=== PATIENT | male | born 1985 | race Caucasian/White ===

== ENCOUNTER 2025-02-26 00:32 | Inpatient (IN) | payer OTHER, SELFPAY ==
[2025-02-25 20:04] VITALS: BP 152/96
[2025-02-25 20:33] LABS: Hematocrit 42.6 % (39.0-52.0); Hemoglobin 14.5 g/dL (13.0-18.0); Mean Corp Hgb Conc. 34.0 g/dL (33.0-37.0); Mean Corpuscular Volume 95.3 fL (80.0-94.0); Nucleated Red Blood Cells % 0 % (-); Platelet Count 216 10^3/uL (130-400); Red Cell Dist. Width 11.6 % (11.5-14.5)
[2025-02-25 20:51] LABS: ALT (SGPT) 14 U/L (0-50); AST (SGOT) 16 U/L (17-59); Albumin 4.8 g/dl (3.5-5.0); Alkaline Phosphatase 48 U/L (38-126); Blood Urea Nitrogen 18 mg/dl (9-20); Calcium 9.1 mg/dl (8.4-10.2); Carbon Dioxide 28 mmol/L (22-30); Chloride 105 mmol/L (98-107); Glucose 89 mg/dl (70-99); Potassium 4.3 mmol/L (3.5-5.1); Sodium 142 mmol/L (135-145); Total Protein 7.1 g/dl (6.3-8.2); eGFR > 60.00
[2025-02-25 21:02] LABS: Troponin I < 0.012 ng/ml
[2025-02-25 21:28] VITALS: BP 139/90
--- NOTE | 2025-02-25 22:47 | ED.GENMED ---
History of Present Illness
General
Chief Complaint: Seizure
Source: patient and records
Exam Limitations: none
Time Seen by Provider: 02/25/25 22:33
Nursing documentation reviewed up to this point in time: agreed with
History of Present Illness
History of Present Illness:
39-year-old male with reported history of seizures presents to the ER for evaluation of amnesia and reported seizure activity. Patient reports that he has a long history of generalized tonic-clonic seizures. He says that his typical seizure
pattern has been to have a brief seizure every few months. He says that in periods of stress the frequency seems to increase. He says that he has been seen by neurologist and has tried 'all of the seizure medications' but that 'everything seems to
make me sees more rather than less.' For this reason he says that he was not started on any chronic seizure medications and has instead been smoking marijuana which he says has decreased his frequency of seizures. He denies any other drug use and
denies any alcohol use. He presents to the ER today because he says that he has no memory of the weekend�he says that he can recall his activities on but that he cannot member anything from Tuesday or Tuesday. He says that he is currently
living with his brother (in a stressful social situation it sounds like). Patient says that he woke up confused on Tuesday morning and his brother told him that he was 'shaking around on the floor all day Tuesday and Tuesday.' Patient says that he
had bitten his tongue and that he believes he was having seizure activity off and on for 48 hours. Here in the ER he says that he is having chills and feels somewhat anxious. He describes nasal congestion and postnasal drip 'like I am underwater.'
He apparently mentions some tightness in his chest in triage but denied to me. He denies any headache or any other acute complaints.
Past History
Past History
ED Past Medical History: Negative HTN or Hypercholesterolemia
ED Past Surgical History: Negative Cardiac
Social History
Tobacco: Non-smoker
Alcohol: None
Drug: Marijuana
Personal: Single
Living: with family
Review of Systems
Review of Systems
All Other Systems: ROS reviewed and negative except as documented in HPI and ROS
Constitutional: Reports chills; Denies fever
EENT: Reports runny nose and other (Nasal congestion)
Respiratory: Denies trouble breathing
Cardiac: Denies chest pain
ABD/GI: Denies abdominal pain, nausea or vomiting
: Denies flank pain
Neurological: Denies dizzy, headache, weakness or numbness
Psychiatric: Reports anxiety
Phy Exam
Physical Exam
Physical Exam:
General: Awake, alert, oriented x3; no acute distress
Head: Normocephalic, atraumatic
Eyes: Conjunctiva normal, EOMI, pupils equal round reactive to light bilaterally
Throat: Airway intact, handling secretions, laceration of the left side of tongue
Neck: Trachea midline, supple without meningismus
Lungs: Clear to auscultation bilaterally, no wheezing, rales, rhonchi
Heart: Regular rate and rhythm, no murmurs, gallops, or rubs
Abd: Soft, non distended, nontender
Neuro: Cranial nerves intact, speech fluid, motor and sensory intact in all extremities
Skin: No rash
Extremities: Warm and well-perfused
Scores
Heart Failure Risk
Heart Failure Risk Score: Not Applicable
Heart Score for Chest Pain Patients
STEMI patient?: Not applicable
Withdrawal Assessment of Alcohol
Withdrawal Assessment Completed?: Not applicable
Course
Orders/Labs/Results
Orders:
Orders
02/25/25 20:17
ECG [Electrocardiogram (*1)] Urgent
Reason for Study: Chest Pain
EKG- Treatment ONCE
02/25/25 20:22
Complete Blood Count/With Diff Urgent
Comprehensive Metabolic Panel Urgent
Troponin I Urgent
02/25/25 22:34
Drug Screen, Urine [Urine Drug Abuse Screen] Urgent
02/25/25 22:43
CT Head W/o Iv Contrast Urgent
Comment:
Reason For Exam: change in seizure pattern, amnesia
Abnormal Lab Results
02/25/25
20:22
WBC 12.1 H 10^3/uL
(4.8-10.8)
RBC 4.47 L 10^6/uL
(4.70-6.10)
MCV 95.3 H fL
(80.0-94.0)
MCH 32.4 H pg
(27.0-31.0)
MPV 10.9 H fL
(7.4-10.4)
Absolute Neuts (auto) 7.2 H 10^3/uL
(1.4-6.5)
Absolute Lymphs (auto) 3.7 H 10^3/uL
(1.2-3.4)
Absolute Monos (auto) 1.0 H 10^3/uL
(0.1-0.6)
AST 16 L U/L
(17-59)
02/25/25 20:22
02/25/25 20:22
Vital Signs
Initial and Last Documented VS:
Initial Vital Signs
Temp Pulse Resp BP Pulse Ox
37.2 C 68 16 152/96 100
02/25/25 20:04 02/25/25 20:04 02/25/25 20:04 02/25/25 20:04 02/25/25 20:04
Last Documented Vital Signs
Temp Pulse Resp BP Pulse Ox
37.2 C 64 16 139/90 99
02/25/25 20:04 02/25/25 22:00 02/25/25 22:00 02/25/25 21:28 02/25/25 22:00
MDM/Problems Addressed
Differential Diagnosis Includes:
Drug/alcohol use, seizure activity, TGA
MDM/Problems Addressed:
39-year-old male presents for evaluation of presumed seizure activity over the weekend�has loss of memory for 2 days and has a trauma to the tongue and was told by family members that he was having seizures off and on for 48 hours. Hypertensive but
otherwise normal vitals. Physical exam as above. He had labs in triage including CBC which shows a marginal leukocytosis, CMP no clinically significant abnormalities. EKG shows sinus rhythm, troponin undetectable. Given change in reported
seizure pattern and loss of memory will check CT head. Will plan to admit for neurology consultation and monitoring.
Chronic conditions affecting care:
Seizures
Acute Exacerbation and/or Progression of Chronic Illness:
Acutely hypertensive resolved without intervention continue to monitor but no additional antihypertensives indicated at this point
Acute Exacerbation and/or Progression of Chronic Illness: HTN
*Radiology
Radiology exam reviewed: radiology read reviewed
*Pulse Oximetry
SaO2: 99
Oxygen Mode of Delivery: Room air
Patient hypoxic: no (99%)
*EKG
Interpreted by ED Provider?: Yes
Heart Rate: 57
Rate: bradycardiac
Rhythm: sinus
Harvel: normal axis
Interval: normal interval
QRS Pattern: normal QRS
Ischemia: no ischemia
*Critical Care Note
Total Time (30-74mins, 75-104mins- exclusive of procedures): Not Applicable
Data Reviewed
Review of Other/Old Records Reveals: Labs, Records and Radiology Studies
Source: patient and records
Patient Management
Discussion with other providers: Hospitalist (Discussed with hospitalist) and [employer] [facility] (Discussed with neurologist )
Escalation/DeEscalation of care consider admission/obs:
Admission indicated
ED Attending Note
-
Portions of this chart may have been created with voice recognition software.� Occasional wrong word or��sound alike� substitutions may have occurred due to the inherent limitations of voice recognition software.
Discharge Plan
Departure
Discharge Problem:
Amnesia, Seizure
Prescriptions:
No Action
multivitamin [Daily Multiple] 1 EACH tablet
1 ea PO DAILY
aspirin [Emerson Aspirin] 325 MG tablet
325 mg PO
Referrals:
Deanne Mccabe NP [Family Provider, Family Practice]
Interventions
Interventions:
*General Assessment Last Done: 02/25/25 20:11
*Neglect/Abuse Screening Last Done: 02/25/25 20:11
*ED COVID-19 Vaccine History Last Done: 02/25/25 22:07
*ED Influenza Vaccine History Last Done: 02/25/25 22:07
Discharge Date and Time
Print Language: AMERICAN
[2025-02-25 23:04] VITALS: BMI 20.6
[2025-02-25 23:12] VITALS: BP 143/111
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
[2025-02-26] VITALS: BP 123/86
[2025-02-26 01:31] VITALS: BP 151/95; BMI 20.3
--- NOTE | 2025-02-26 05:56 | W.PN.UPDATE ---
Update Note
Progress Note Update
patient reports he is suicidal, has ideas but no active plans. discussed with Attending. will place patient on 1:1. Pych consult in place
--- NOTE | 2025-02-26 06:31 | PTCARENOTE ---
pt is aaox3, he is flat affect and depressed. states how he is suicidal. originally denied a plan, but then stated ' i have a noose on my table at home. i don't think the tree branch will be able to hold me' 'i hope there is a next life' informed [facility]
Bhupinder - 1:1 observation started. pt has order for psych and neuro.
[2025-02-26 07:54] LABS: HDL Cholesterol 43 mg/dl; LDL Cholesterol, Calculated 31 mg/dl; Very Low Density Lipoprotein 10 mg/dl (0-30)
--- NOTE | 2025-02-26 08:20 | PTCARENOTE ---
Pt still stating this am that he was telling the previous nurse that he 'has a noose at home already tied and was ready to slip it over his neck and just jump and then Snap!'. He dose not want to suffer, he wants it quick. 'I have suffered enough.'
Pt's 1:1 at bedside. Pt cooperative and appropriate at present.
[2025-02-26 08:28] VITALS: BP 147/87
[2025-02-26 08:29] LABS: TSH 0.75 uIU/ml (0.47-4.68)
[2025-02-26 08:33] LABS: Ferritin 110.0 ng/ml (17.9-464.0)
[2025-02-26 09:05] LABS: Folate 7.7 ng/ml (2.76-20); Vitamin B12 271 pg/ml (239-931)
[2025-02-26 10:13] VITALS: BP 126/80; BP 144/106; O2SAT 98
--- NOTE | 2025-02-26 14:31 | CM ---
Addendum entered by Alexus Hilliard 02/26/25 15:27:
retail general manager reviewed with patient any recent hospitalizations and patient states he goes to [facility].
Original Note:
retail general manager reviewed patient's chart and met with patient and patient lives with his brother in a town home, patient's grandfather lives next door, patient is independent with adl's and ambulation, no dme, patient does not drive, patient reports
that he has not felt like this before, pillowcase cleaner asked patient if he has ever been treated before for any mental health challenges and patient progress that he has not, that he has kept his thoughts to himself and does not share his thoughts even
with his family and has not received any treatment, patient states that he uses Marijuana at home to deal with life's challenges.
Plan; retail general manager will await psychiatry evaluation for recommendations for patient.
[2025-02-26 14:43] VITALS: BP 156/89
--- NOTE | 2025-02-26 14:54 | W.PN.HOSP.TC ---
Today's Communication/Plan
-
Obtain further records from [place] [facility]
Await neurology input
Maintain on as needed benzodiazepine for suspected seizures
Assessment / Plan
Assessment / Plan
1. Seizure activity
- Patient has history of seizure disorder in the past currently not on any medication
- IV Ativan as needed ordered
- CT head in ER did not show any acute issues
- Neurology evaluated and await further input
- Patient initially not willing to be started on AED, okay with initiation of Keppra if needed
2. Suicidal ideation
- Patient reported having suicidal thoughts and stated of having a plan
- Currently on one-on-one
- Psychiatry evaluated and have requested further records from [facility]
DVT prophylaxis -SCD
Full code
Care plan discussed with neurology/psychiatry
Total time spent : 52 mins
Anticipated Discharge: 24 - 48 hours
Subjective/Interval History
-
Date of Service: February 26, 2025
No complaints overnight
no reported seizure activity
Objective Data
-
Vital Signs:
Vital Signs
Temp Pulse Resp BP Pulse Ox
98.1 F 53 16 156/89 100
02/26/25 14:43 02/26/25 14:43 02/26/25 14:43 02/26/25 14:43 02/26/25 14:43
Review of Systems
-
Respiratory: Reports No Symptoms
Cardiac: Reports No Symptoms
Abdomen/GI: Reports No Symptoms
Physical Exam
-
General: Negative Appears in Distress
HEENT: Negative Oxygen
Neuro: Awake, Alert, Oriented and No Motor Deficits
--- NOTE | 2025-02-26 21:10 | CON.NEURO4 ---
Consultation - Neurology 4
-
CONSULTING PHYSICIAN: Moiz Calvin MD
REFERRING PHYSICIAN: Westley White MD
DICTATED BY: Moiz Calvin MD
DATE/TIME OF REQUEST: 02/26/2025
DATE/TIME OF CONSULTATION: 02/26/2025
Reason for Consultation: Seizure
Assessment and Plan:
The patient is a 39 years old male with a past medical history of epilepsy who is not currently on any antiepileptic medication as the patient thinks that the antiepileptic medications that he has used in the past have not helped him to prevent the
seizures. He says that he takes marijuana to reduce her frequency of seizures. The patient is under a lot of stress due to his family circumstances and a psychiatry consult has been requested. The risks of not being on antiepileptic medication
including seizures and accidents were told and the patient verbalized understanding of our discussion.
Recommend Keppra 500 mg twice a day.
The CT of head did not show an acute intracranial abnormality.
Recommend MRI of the brain with and without contrast.
EEG to rule out seizure.
Seizure precautions including no driving for 6 months according to the [employer] law.
I had a detailed discussion with the patient regarding the assessment and the management plan and the patient verbalized understanding of our discussion.
History of Present Illness:
The patient is a 39 years old male with a past medical history of epilepsy who is not currently on any antiepileptic medication as the patient thinks that the antiepileptic medications that he has used in the past have not helped him to prevent the
seizures. He says that he takes marijuana to reduce her frequency of seizures. The patient is under a lot of stress due to his family circumstances and a psychiatry consult has been requested. The patient states that he had multiple seizures
prior to coming to the hospital with tongue bite and loss of consciousness which were witnessed by his brother. The patient does not want to take antiepileptic medications. The risks of not being on antiepileptic medication including seizures and
accidents were told and the patient verbalized understanding of our discussion.
The CT of head did not show an acute intracranial abnormality.
Past Medical History: Seizures.
Review of Systems:
The 10 point review of systems was negative aside from what is given in the history of present illness.
Neurologic Examination:
The patient is alert and oriented x 3
The speech is clear
The cranial nerves II to XII are grossly intact
The motor strength is 5/5 bilaterally in the upper and lower extremities
The sensations are grossly intact bilaterally
The cerebellar examination does not show limb ataxia
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
[2025-02-27] VITALS: BP 144/77
[2025-02-27 00:30] VITALS: BP 144/77
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
--- NOTE | 2025-02-27 08:29 | PTCARENOTE ---
Patient's automatic blood pressure failed to read 4 times. Manual needed to be taken.
--- NOTE | 2025-02-27 10:52 | CM ---
Addendum entered by Alexus Hilliard 02/27/25 16:15:
Cost of Vimpat per insurance is that it is formulary and covered by insurance with a $1 copay.
Original Note:
Chart reviewed and will wait on updated review and recommendations from psychiatry, and will assist with discharge planning.
Plan; Await psychiatry recommendations.
--- NOTE | 2025-02-27 12:31 | W.PN.HOSP.TC ---
Today's Communication/Plan
-
MRI brain with and without contrast
US SUSAN/TBI check
EEG/AED deferred to neuro
Assessment / Plan
Assessment / Plan
1. Seizure activity
- Patient has history of seizure disorder in the past currently not on any medication
- IV Ativan as needed ordered
- CT head in ER did not show any acute issues
- Neurology evaluated -MRI brain with and without contrast ordered as per recommendation
- Patient initially not willing to be started on AED, okay with initiation of Keppra if needed
2. Suicidal ideation
- Patient reported having suicidal thoughts and stated of having a plan
- Currently on one-on-one
- Psychiatry evaluated and have requested further records from [facility]
3. Bilateral feet claudication
- Active tobacco use
- SUSAN TBI ordered as LE pulses are palpable although felt to be low intensity
DVT prophylaxis -SCD
Full code
Anticipated Discharge: 24 - 48 hours
Subjective/Interval History
-
Date of Service: February 27, 2025
Resting comfortably in bed
Denies of any ongoing issue
Objective Data
-
Vital Signs:
Vital Signs
Temp Pulse Resp BP Pulse Ox
98.2 F 88 24 144/77 100
02/27/25 07:55 02/27/25 07:55 02/27/25 07:55 02/27/25 00:00 02/27/25 08:20
Review of Systems
-
Respiratory: Reports No Symptoms
Cardiac: Reports No Symptoms
Abdomen/GI: Reports No Symptoms
Physical Exam
-
General: Negative Appears in Distress
HEENT: Negative Oxygen
Neuro: Awake, Alert, Oriented and No Motor Deficits
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
[2025-02-27 15:18] VITALS: BP 148/97
--- NOTE | 2025-02-27 17:13 | W.PN.NEURO.1 ---
Today's Communication / Plan
-
The patient is a 39 years old male with a past medical history of epilepsy who is not currently on any antiepileptic medication as the patient thinks that the antiepileptic medications that he has used in the past have not helped him to prevent the
seizures. He says that he takes marijuana to reduce his frequency of seizures. The patient is under a lot of stress due to his family circumstances and a psychiatry consult has been requested. The risks of not being on antiepileptic medication
including seizures and accidents were told and the patient verbalized understanding of our discussion.
Would recommend Vimpat 100 mg BID as the patient does not want to take Keppra, dilantin or Depakote, which he says that he has used in the past and did not help him.
The CT of head did not show an acute intracranial abnormality.
Recommend MRI of the brain with and without contrast.
EEG to rule out seizure.
Seizure precautions including no driving for 6 months according to the [place] law. The patient verbalized understanding of our discussion regarding seizure precautions.
I had a detailed discussion with the patient regarding the assessment and the management plan and the patient verbalized understanding of our discussion.
Will sign off. Please call if you have any question.
Subjective/Objective
Subjective Data
Date of Service: February 27, 2025
The patient is a 39 years old male with a past medical history of epilepsy who is not currently on any antiepileptic medication as the patient thinks that the antiepileptic medications that he has used in the past have not helped him to prevent the
seizures. He says that he takes marijuana to reduce his frequency of seizures. The patient is under a lot of stress due to his family circumstances and a psychiatry consult has been requested. The risks of not being on antiepileptic medication
including seizures and accidents were told and the patient verbalized understanding of our discussion.
Would recommend Vimpat 100 mg BID as the patient does not want to take Keppra, dilantin or Depakote, which he says that he has used in the past and did not help him.
The CT of head did not show an acute intracranial abnormality.
Recommend MRI of the brain with and without contrast.
EEG to rule out seizure.
Seizure precautions including no driving for 6 months according to the [place] law. The patient verbalized understanding of our discussion regarding seizure precautions.
I had a detailed discussion with the patient regarding the assessment and the management plan and the patient verbalized understanding of our discussion.
Objective Data
Vital Signs
Temp Pulse Resp BP Pulse Ox
36.6 C 61 20 148/97 100
02/27/25 15:18 02/27/25 15:18 02/27/25 15:18 02/27/25 15:18 02/27/25 15:18
Lab Results
02/25/25 20:22
02/25/25 20:22
Sodium 142 mmol/L (135-145) 02/25/25 20:22
Potassium 4.3 mmol/L (3.5-5.1) 02/25/25 20:22
BUN 18 mg/dl (9-20) 02/25/25 20:22
Glucose 89 mg/dl (70-99) 02/25/25 20:22
Calcium 9.1 mg/dl (8.4-10.2) 02/25/25 20:22
LDL Cholesterol, Calc 31 mg/dl 02/26/25 06:54
Vitamin B12 271 pg/ml (239-931) 02/26/25 06:54
Ur Buprenorphine Negative (Negative) 02/25/25 23:16
Patient Allergies
fish Allergy (Mild, Uncoded 02/26/25 01:57)
vomits
Medications
-
Active Medications
Generic Name Dose Route Start Last Admin
Trade Name Freq PRN Reason Stop Dose Admin
Acetaminophen 650 mg 02/26/25 01:27
Acetaminophen 325 Mg Tablet PO 03/26/25 01:26
Q4HPRN PRN
mild pain/DODD/temp> 100.4F
Bisacodyl 10 mg 02/26/25 01:27
Bisacodyl 10 Mg Rectal Suppository RECTAL 03/26/25 01:26
V68IDSG PRN
constipation
Diazepam 10 mg 02/26/25 01:27
Diazepam 10 Mg/2 Ml Inj IV 03/26/25 01:26
DAILY PRN
seizure
Lacosamide 100 mg 02/27/25 20:00
Lacosamide (Vimpat) 100 Mg Tablet PO 03/27/25 19:59
BID ROYAL
Ondansetron HCl 4 mg 02/26/25 01:27
Ondansetron 4 Mg/2 Ml Vial IV 03/26/25 01:26
Q6HPRN PRN
nausea and vomiting
Polyethylene Glycol 17 grams 02/26/25 01:27
Polyethylene Glycol Powder 17 Grams Packet PO 03/26/25 01:26
DAILYPRN PRN
constipation
Senna/Docusate Sodium 1 tablet 02/26/25 01:27
Docusate W/Senna (Fernanda-Colace) Tablet PO 03/26/25 01:26
BIDPRN PRN
constipation
Sodium Chloride 0 flush 02/26/25 02:00
Sodium Chloride 0.9% (Flush) Syringe IV 03/26/25 01:59
PER PROTOCOL ROYAL
[2025-02-27] MEDS: VIMPAT 100 MG PO (19:25)
[2025-02-27] MEDS: ZYRTEC 10 MG PO (22:14)
[2025-02-27 23:00] VITALS: BP 173/85
[2025-02-28 03:29] VITALS: BP 159/87
[2025-02-28 07:05] VITALS: BP 139/96
[2025-02-28] MEDS: VIMPAT 100 MG PO (07:48)
[2025-02-28] MEDS: OCEAN, SALINE MIST 4 SPRAYS NASAL (07:49)
--- NOTE | 2025-02-28 09:06 | CM ---
Addendum entered by Alexus Hilliard 02/28/25 14:11:
manager of global has provided patient with Mobile Crisis number for [facility] contact number and outpatient counseling resources in [facility], shoe parts caser has set up an appointment for patient with [facility] on
03/05/25 at 10:30am, home today.
Original Note:
manager of global continues to follow with patient progress and contacted patient's insurance yesterday and cost of Lacosamide/Vimpat has a copay or $1 per month. Physician made aware.
Plan; To follow with patient progress and assist with discharge planning.
--- NOTE | 2025-02-28 12:28 | W.DCSUMMARY ---
Discharge Summary
Discharge Data
Date of Admission: 02/26/25
Date of Discharge: 02/28/25
-
Pending Results: No
Hospital Course
Discharging Physician : Dr Westley White
Disposition : To home
Primary care physician : Dr Deanne Mccabe
Principal Discharge diagnosis :
Reported seizure episodes
Suicidal ideation/intent
Chronic Discharge diagnosis :
History of seizure disorder
Marijuana use
Tobacco use
Physical examination:
HEENT: NC/AT
Chest: Clear to auscultation
Heart: N s1/s2, RRR
Abd: N BS, soft, nontender,
Neuro: No motor or sensory deficits,
Ext: edema
Hospital Course :
Patient is a 39-year-old male with past medical history of seizure disorder came with possible another seizure episode. Patient was noted to have multiple episodes of 'shaking' by family member and patient woke up with a tongue bite and no memory
of 24-48hrs. patient came to ER for further evaluation. Patient apparently have a history of seizure disorder and has been tried on different antiseizure medication in the past by regular neurologist without much success. Patient had been using
marijuana to help with the seizures although has increased frequency of seizures. CT head done in the ER showed no acute abnormality. Urine drug screen was positive for marijuana and benzos. Neurology was involved in care who recommended MRI
brain with without contrast and was negative for any structural issues. Patient did not have any further seizure activities. After discussion with patient patient agreed to be started on Vimpat, patient did not want any other AED as he has failed
in the past and medically there was concern of mood changes.
Patient also have expressed suicidal intent and ideation this admission. Psychiatry was involved in care and has evaluated patient. Patient initially was considered to be put on for involuntary hold in a psych facility although patient was later
cleared by psychiatry for discharge after improvement in suicidal ideation. Psychiatry has provided patient outpatient resources to follow through.
Onsite patient was also complaining of some bilateral feet claudication, patient has history of tobacco use and her lower extremity SUSAN/TBI was checked which ruled out any PAD. This is likely related to patient shoes and was instructed to have
changed for a better fit shoes.
Important imaging findings :
None
Procedure findings :
None
Discharge Plan
-
Patient Disposition: Home (Routine Discharge)
Discharge Diagnosis/Procedures: Seizure episode, suicidal ideation
Condition: Fair
Diet: Regular
Activity: As tolerated
Driving Restrictions: As prior to admission
Bathing Restrictions: OK to Shower
Referrals:
Deanne Mccabe NP [Family Provider, Family Practice] - in one week
Prescriptions:
New
lacosamide 100 mg Tablet
100 mg PO BID Qty: 60 2RF
Discharge Orders:
Discharge Patient (As Directed); Ordered 02/28/25
Ordered By: Westley White
Discharge Date and Time
Print Language: SLOVAK
--- NOTE | 2025-02-28 12:49 | W.PN.UPDATE ---
Update Note
Progress Note Update
patient seen chart reviewed. discussed with nursing and with case mgt. the patient is in a much better frame of mind today. he says his discussion with this business writer and with his one to one was very helpful in making him realize he can have a future
if he gets away from the stressors of his life. to this end he will be leaving the home he shares with his brother as he has a friend who is willing to set up house with him in a trailer they can rent for four months or so. his long range plan is to
get his sz disorder under control and do some serious hiking maybe the [facility] or even hike across the country. he said he believes his thoughts about 'flying' really are a wish to have adventure in his life rather than the painful
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 he is willing to take the vimpat.it will cost him one dollar for a month supply as per cm. cm arranging for followup in the family medicine clinic. he should also seek mental health
treatment for supportive therapy if he is feeling suicidal again. cm will give him a list of services. he can also call crisis if need be.
mse alert 0x3 pleasant and cooperative. much softer spoken than yesterday speech nl rate and tone goal oriented no psychosis mood is hopeful affect appropriate denies suicidality expressing thoughts re his future insight judgment have improved.
== END 2025-02-28 14:48 | disposition home or self-care (01) | DRG 101 ==
LOC: 4 WEST ACU 00:32
PROVIDERS: Emergency Medicine; ADMITTING PHYSICIAN Internal Medicine; ATTENDING PHYSICIAN Hospitalist; CONSULT PHYSICIAN Psychiatry & Neurology Neurology; EMERGENCY PHYSICIAN Emergency Medicine; FAMILY PHYSICIAN Nurse Practitioner Adult Health; OTHER PHYSICIAN Psychiatry & Neurology Psychiatry
DX: G40.909 Epilepsy, unspecified, not intractable, without status epilepticus (principal); R45.851 Suicidal ideations; F22 Delusional disorders; F17.200 Nicotine dependence, unspecified, uncomplicated; F12.90 Cannabis use, unspecified, uncomplicated; F60.3 Borderline personality disorder; I73.9 Peripheral vascular disease, unspecified; Z56.0 Unemployment, unspecified; Z91.148 Patient's other noncompliance with medication regimen for other reason; Z79.899 Other long term (current) drug therapy
CPT/HCPCS: 70450; 70553; 80053; 80061; 80306; 82607; 82728; 82746; 84443; 84484; 85025; 87070; 93005; 93922; 97162; 99285; 99406; A9575

== ENCOUNTER 2025-03-05 13:50 | Emergency (ER) | payer OTHER, MEDICAID, SELFPAY ==
[2025-03-05 13:55] VITALS: BP 140/88
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
[2025-03-05 16:05] VITALS: BMI 22.1
[2025-03-05 18:18] VITALS: BP 129/70
[2025-03-05] MEDS: HALDOL 5 MG IM (20:26)
[2025-03-05] MEDS: VALIUM INJECTION 5 MG IM (20:27)
--- NOTE | 2025-03-05 20:52 | EDRN ---
4 point restraints: Patient on a 1:1 observation. Patient had blanket wrapped around his throat and screaming 'I want to ' while laughing. RN at bedside. Patient removed blanket but very agitated and reports he will do it again. RN trying to
reason with patient. Patient puts blanket around neck again. Security called and patient restrained. Patient medicated. See MAR. Patient continues to be agitated and is placed in 4 point restraints. Patient remains safe while in 4 point restraints
and 1:1 observation.
[2025-03-05 22:21] VITALS: BP 152/85
[2025-03-06 00:15] VITALS: BP 146/78
--- NOTE | 2025-03-06 02:29 | DOWNTIME ---
There was a [employer] Occupational Therapy Professor Downtime on 03/06/2025 from 0100 to 03/06/2025 at 0215. Downtime documentation of patient's care, including medication administrations, has been reconciled in the electronic record per guidelines. Refer to the
patient's paper chart under the miscellaneous tab to see printed paper medication records and downtime forms.
== END 2025-03-06 02:10 ==
LOC: EMR 13:50
PROVIDERS: CONSULT PHYSICIAN Psychiatry & Neurology Psychiatry; EMERGENCY PHYSICIAN Student in an Organized Health Care Education/Training Program
DX: R45.851 Suicidal ideations (principal); G40.909 Epilepsy, unspecified, not intractable, without status epilepticus; Z63.8 Other specified problems related to primary support group; Z78.1 Physical restraint status; Z81.8 Family history of other mental and behavioral disorders
CPT/HCPCS: 99285; 96372 ×2